=== PATIENT | female | born 1980 | race Caucasian/White ===

== ENCOUNTER → 2017-02-13 | Outpatient (CLI) | payer BC ==
--- NOTE | 2017-02-13 11:12 | Diagnostic Imaging Report ---
INDICATION: Left hip pain for two months. FINDINGS: Femoral head is in normal articulation with the acetabulum. Joint spaces well preserved. Articulating surfaces are smooth. No osteophyte formation is present. No sclerosis or subcortical cystic changes. There are no fractures. No soft tissue calcification. The left SI joint appears normal. IMPRESSION: Normal left hip. Dictated by: Dictated on workstation # [id number]
== END ==
LOC: RAD 09:22
PROVIDERS: ATTEND Physician Assistant Surgical
DX: Z01.818 Encounter for other preprocedural examination (principal); M25.552 Pain in left hip
CPT/HCPCS: 73502; 81025